=== PATIENT | male | born 1995 | race Caucasian/White ===

== ENCOUNTER 2018-12-22 18:27 | Emergency (ER) | payer BC ==
[~2018-12-22] VITALS: Ht 185.4 cm; Wt 86.4 kg
[2018-12-22 18:39] VITALS: TEMP 98.5
[2018-12-22] MEDS ORDERED: CEPHALEXIN500 M1 PO (19:39)
[2018-12-22 19:48] VITALS: BP 119/81; PULSE 97
== END 2018-12-22 19:48 | disposition home or self-care (01) ==
LOC: COL.ER 18:27
DX: S01.511A Laceration without foreign body of lip, initial encounter (principal); Y04.0XXA Assault by unarmed brawl or fight, initial encounter

== ENCOUNTER → 2018-12-27 | Outpatient (CLI) | payer BC ==
[~2018-12-27] MED LIST: CEPHALEXIN500 M1 PO
[2018-12-27 13:48] VITALS: BP 116/64; PULSE 88; TEMP 97.5
== END ==
LOC: COL.ER 13:34
DX: S01.511D Laceration without foreign body of lip, subsequent encounter (principal); X58.XXXD Exposure to other specified factors, subsequent encounter